=== PATIENT | female | born 1995 | race Caucasian/White ===

== ENCOUNTER 2020-11-26 11:40 | Inpatient (IN) ==
[2020-11-26] MEDS ORDERED: Buffered Lidocaine 1% SYRIN 1 ml INTRADERM ONE (12:43)
[2020-11-26] MEDS ORDERED: Lactated Ringers 1000 ml BAG 1,000 ML IV ONE ×2 (12:43→15:13)
[2020-11-26] MEDS ORDERED: Lactated Ringers 1000 ml BAG 1,000 ML IV SCH ×3 (13:00→16:00)
[2020-11-26 13:31] LABS: ABS Lymphocytes 1.4 10^3/ul (1.0-4.8); ABS Neutrophils 11.1 10^3/ul (1.5-7.7); Eosinophil % 0.1 %; Hematocrit 36 % (35-47); Hemoglobin 12.5 g/dL (12.0-16.0); Lymphocyte % 10.3 %; Mean Corpuscular HGB Conc 34 g/dL (31-36); Mean Corpuscular Hemoglobin 30 pg (27-31); Mean Corpuscular Volume 86 fL (80-97); Mean Platelet Volume 7.6 fL (7.4-10.4); Platelet Count 193 10^3/uL (150-450); Red Blood Count 4.22 10^6 /uL (3.70-4.87); Red Cell Distribution Width 13 % (10-15); White Blood Count 13.5 10^3/uL (3.5-10.8)
[2020-11-26 13:38] LABS: Urine Appearance Clear; Urine Bilirubin Negative (Negative); Urine Blood Negative (Negative); Urine Color Yellow; Urine Glucose Negative (Negative); Urine Ketones 2+ (Negative); Urine Nitrite Negative (Negative); Urine Protein Negative (Negative); Urine Specific Gravity 1.008 (1.002-1.030); Urine Urobilinogen Negative (Negative)
[2020-11-26 13:48] LABS: Albumin 3.5 g/dL (3.2-5.2); Albumin/Globulin Ratio 1.2 (1-3); Calcium 8.5 mg/dL (8.6-10.3); EGFR African American 148.6 (>60); EGFR Non-African American 122.8 (>60); Globulin 2.9 g/dL (2-4); Potassium 3.2 mmol/L (3.5-5.0); Total Bilirubin 0.6 mg/dL (0.2-1.0); Total Protein 6.4 g/dL (6.4-8.9); Uric Acid 4.9 mg/dL (2.3-6.6)
[2020-11-26 13:49] LABS: Urine Benzodiazepine Screen None Detected (None Detect); Urine Cannabinoids Screen None Detected (None Detect); Urine Opiates Screen None Detected (None Detect)
[2020-11-26] MEDS ORDERED: OBEPIDURAL 250 ML EPIDURAL ONE (14:00)
[2020-11-26] MEDS ORDERED: Sodium Citrate/Citric Acid LIQ 15 ML UDC PO PRN (15:13)
[2020-11-26] MEDS ORDERED: Phenylephrine 40 mcg/mL 10mL (400mcg) SYRINGE IV PUSH PRN ×2 (15:13)
[2020-11-26] MEDS ORDERED: Lactated Ringers 1000 ml BAG 500 ML IV PRN ×2 (15:13)
[2020-11-26] MEDS ORDERED: OBEPIDURAL 250 ML EPIDURAL SCH (16:00)
[2020-11-26] MEDS ORDERED: Oxytocin in LR 0 UNITS/0 ML BAG IVPB ONE (23:02)
[2020-11-27] MEDS ORDERED: Witch Hazel PAD JAR TOPICAL PRN (01:08)
[2020-11-27] MEDS ORDERED: Dibucaine 1% OINT 28.35 GM TUBE PR PRN (01:08)
[2020-11-28 08:24] LABS: ABS Eosinophils 0.2 10^3/ul (0-0.6); ABS Monocytes 0.8 10^3/ul (0-0.8); ABS Neutrophils 6.4 10^3/ul (1.5-7.7); Eosinophil % 2.6 %; Hematocrit 30 % (35-47); Hemoglobin 10.2 g/dL (12.0-16.0); Lymphocyte % 21.3 %; Mean Corpuscular HGB Conc 34 g/dL (31-36); Mean Corpuscular Hemoglobin 30 pg (27-31); Mean Corpuscular Volume 88 fL (80-97); Mean Platelet Volume 7.6 fL (7.4-10.4); Nucleated Red Blood Cells % 0.1; Platelet Count 173 10^3/uL (150-450); Red Blood Count 3.38 10^6 /uL (3.70-4.87); Red Cell Distribution Width 13 % (10-15); White Blood Count 9.6 10^3/uL (3.5-10.8)
[2020-11-28] MEDS ORDERED: Dibucaine 1% OINT 28.35 GM TUBE ONE (18:08)
[2020-11-29 08:15] VITALS: BP 125/65
== END 2020-11-29 14:13 | disposition home or self-care (01) | DRG 560 ==
LOC: MCHOBOUT 11:40 → MCHOB 12:45
PROVIDERS: ADMIT Midwife; ATTEND Midwife